=== PATIENT | male | born 1965 | race Caucasian/White ===

== ENCOUNTER 2021-09-05 14:12 | Emergency (ER) | payer BC, SELFPAY ==
[2021-09-05 15:17] VITALS: BP 169/75; PULSE 84; RESP 14; TEMP 36.7; O2SAT 98; BMI 32.0
[2021-09-05 15:22] VITALS: PULSE 85; O2SAT 98
--- NOTE | 2021-09-05 15:53 | W.ED.GENADLT ---
HPI - General Adult General: Chief complaint: General Medical Stated complaint: PIC Line dressing change, Wound vac needs changed Time Seen by Provider: 09/05/21 15:28 History of Present Illness: Patient is a 56-year-old male comes to the ED with need of dressing change. Patient is from [place] and is here in [place] temporarily for his father's . He has a PICC line dressing gets changed every week and a wound VAC dressing on his right foot that gets changed every 3 to 5 days. Since he is taking care of stuff with his father's passing he has been here now for several days longer than he thought. He is due to have both of his dressings changed. Denies any symptoms such as fever or any redness or pain around PICC line site. Associated symptoms: Deny chest pain, dyspnea, headache(s), nausea, rash, palpitations or vomiting Review of Systems Const: Denies: fever(s), chills or fatigue Eyes: Denies: change in vision or eye discomfort ENMT: Denies: throat pain, odynophagia, nasal discharge or nasal congestion Card: Denies: chest pain, palpitations, edema, swelling of feet/ankles, dyspnea on exertion or orthopnea Resp: Denies: dyspnea, productive cough or non-productive cough GI: Denies: abdominal pain, nausea, vomiting, diarrhea, constipation or hematochezia : Denies: flank pain, difficulty urinating, dysuria or hematuria Musc: Denies: neck pain, back pain or extremity swelling Skin/Breast: Reports: other (Wound VAC on right foot surgical site); Denies: rash or new lesions Neuro: Denies: headache(s) [facility] PFSH: Medical History Diabetes No pertinent family history Physical Exam Const: COMMON NORMALS: no acute distress, patient oriented x3 and alert GENERAL APPEARANCE: cooperative and comfortable HENMT: COMMON NORMALS: normocephalic HEAD & SCALP: normocephalic MOUTH: Normal oral and palatal mucosa present THROAT: posterior oropharynx normal and uvula midline Neck/C-Spine: COMMON NORMALS: supple GENERAL: Yes normal visual inspection Resp: COMMON NORMALS: normal respiratory effort, No retractions, No use of accessory muscles and clear to auscultation bilaterally AUSCULTATION: clear to auscultation bilaterally Cardio: COMMON NORMALS: regular rate, regular rhythm, S1 normal heart sound present, S2 normal heart sound present, No gallops present (Cardio), No clicks present (Cardio), No murmurs present (Cardio) and Peripheral pulses 2+ throughout RATE: regular rate RHYTHM: regular rhythm HEART SOUNDS: S1 normal heart sound present and S2 normal heart sound present PERIPHERAL PULSES: Peripheral pulses 2+ throughout GI: COMMON NORMALS: Normal to inspection, nondistended, normoactive bowel sounds present, Soft to palpation, non-tender and no masses PALPATION: Yes Soft to palpation : COMMON NORMALS: Yes no CVA tenderness BLADDER/KIDNEY EXAM: Yes no CVA tenderness Back/Pelvis: COMMON NORMALS: no CVA tenderness Extremity: NARRATIVE EXTREMITY EXAM: PICC line in right arm?no cellulitis, erythema or purulent drainage noted. GENERAL: Yes normal exam except as noted Neuro: COMMON NORMALS: patient oriented x3 SENSORIUM/ORIENTATION: Yes alert Skin: GENERAL SKIN EXAM: dry skin Course Vital Signs: Vital signs: Vital Signs Temperature 98.1 F 09/05/21 15:17 Pulse Rate 86 09/05/21 16:50 Respiratory Rate 18 09/05/21 16:50 Blood Pressure 148/100 09/05/21 16:50 Pulse Oximetry 98 09/05/21 16:50 [facility] - General Adult Medical Decision Making Patient is a 56-year-old male who comes to the ED for a wound dressing change. Patient is from [place] and is visiting [place] because his father just here and is planning his . He currently has a PICC line on right arm and a wound VAC dressing on right foot. He needs to get both of these dressings changed. Denies any fever, chills, or infection signs around wound sites. He is overdue on getting his dressings changed. Vitals are stable. Patient's PICC line appears normal no signs of infection noted. Nurse came in and changed patient's PICC line dressing and also change the wound VAC dressing. He was discharged home and told to follow-up with his PCP at his next scheduled appointment. Return to ED precautions given. Patient understood agree with plan. Discharge Plan Discharge Patient Disposition: Home Clinical Impression: Change of dressing Condition: Stable Discharge Orders: Discharge ED (Routine); Ordered 09/05/21 Ordered By: Tyrone New Discharge Diet: Regular Discharge Activity: Increase activity as tolerated Activity Restrictions/Additional Instructions: Follow-up with medical provider as directed. Return to the ER or your medical provider if condition worsens. Please read and understand discharge instructions. Thank you for choosing [facility] for your healthcare needs today. Please realize this is an emergency room and that we are providing you with a medical screening exam and this may not be complete and all inclusive of all the testing and or work up that you may need to determine your ailment or severity of your illness. It is very important that you follow up as instructed or that you return to the Emergency Department should you have concerns or if your condition changes or worsens in any way. Coding Level of Care Code ED Manager [employer] for Elvira Anderson Exam Comprehensive
[2021-09-05 16:50] VITALS: BP 148/100; PULSE 86; RESP 18; O2SAT 98
== END 2021-09-05 16:50 | disposition home or self-care (01) ==
PROVIDERS: Emergency Provider Physician Assistant
DX: Z48.00 Encounter for change or removal of nonsurgical wound dressing (principal)
CPT/HCPCS: 99283